=== PATIENT | male | born 1955 | race Caucasian/White ===

== ENCOUNTER 2021-02-09 10:18 | Inpatient (IN) | payer OTHER, SELFPAY ==
[~2021-02-09] VITALS: Ht 157.5 cm; Wt 94.8 kg
[2021-02-09 10:35] VITALS: BP_SYST 148
[2021-02-09] MEDS ORDERED: MORPHINE 4 MG INJ. 4 MG/ML VIAL IM ONE (11:00)
[2021-02-09] MEDS ORDERED: ONDANSETRON 4 MG ODT TAB PO ONE (11:00)
[2021-02-09 11:31] LABS: BASOPHILS # (AUTO) 0.1 K/uL (0.0-0.2); BASOPHILS % (AUTO) 0.4 % (0.0-2.0); EOSINOPHILS # (AUTO) 0.1 K/uL (0.0-0.4); EOSINOPHILS % (AUTO) 0.5 % (0.0-4.0); HEMATOCRIT 51.4 % (36-54); HEMOGLOBIN 17.4 g/dL (14.0-18.0); LYMPHOCYTES % (AUTO) 6.2 % (20.5-51.5); MEAN CORPUSCULAR HEMOGLOBIN 31 pg (27-31); MEAN CORPUSCULAR HGB CONC 34 % (32-36); MEAN CORPUSCULAR VOLUME 91 fL (79.0-98.0); MONOCYTES # (AUTO) 1.2 K/uL (0.0-1.0); MONOCYTES % (AUTO) 7.4 % (1.7-9.3); NEUTROPHILS # (AUTO) 14.1 K/uL (1.8-7.7); NEUTROPHILS % (AUTO) 85.5 % (40.0-70.0); PLATELET COUNT (AUTO) 246 K/uL (130-430); RED BLOOD CELL COUNT(AUTO) 5.65 MIL/uL (4.2-6.2); RED CELL DISTRIBUTION WIDTH 14.8 % (9.0-15.0); WHITE BLOOD COUNT (AUTO) 16.5 K/uL (4.8-10.8)
[2021-02-09 11:43] LABS: CALCIUM 8.7 mg/dL (8.4-11.0); CREATININE 1.05 mg/dL (0.55-1.30); POTASSIUM 3.5 mmol/L (3.5-5.1)
[2021-02-09 11:47] LABS: PROTHROMBIN TIME 10.6 SECS (9.5-12.5)
[2021-02-09 11:49] LABS: ALBUMIN 4.5 g/dL (3.4-4.8); C-REACTIVE PROTEIN QUANT 0.4 mg/dL (0-0.5); TOTAL BILIRUBIN 8.3 mg/dL (0.0-1.0)
[2021-02-09] MEDS ORDERED: MORPHINE 4 MG INJ. 4 MG/ML VIAL IVP ONE (12:30)
[2021-02-09] MEDS ORDERED: NACL 0.9% 1,000 ML IV ONE ×2 (12:30→14:15)
[2021-02-09] MEDS ORDERED: ATOR20TA64 PO (12:32)
[2021-02-09] MEDS ORDERED: BANANA BAG 1 EA, FOLIC ACID 1 MG, THIAMINE HCL 100 MG, MAGNESIUM SULFATE 1 GM, MVI 10 M... IV SCH ×5 (14:15)
[2021-02-09] MEDS: D5NS 1,000 ML IV SCH ×2 (14:24→22:30)
[2021-02-09] MEDS ORDERED: ONDANSETRON HCL 4 MG/2 ML VIAL IVP ONE (15:15)
[2021-02-09] MEDS: LORazepam 2 MG/ML VIAL IVP PRN (15:27)
[2021-02-09] MEDS: THIAMINE HCL 100 MG, MAGNESIUM SULFATE 1 GM in NS 100 ML IV SCH (15:43)
[2021-02-09 15:53] LABS: CLARITY/URINE CLEAR (CLEAR); COLOR,URINE YELLOW (YELLOW); GLUCOSE,URINE NEGATIVE (NEGATIVE); KETONES,URINE 1+ (NEGATIVE); LEUKOCYTE ESTERASE ,URINE NEGATIVE (NEGATIVE); NITRITE, URINE NEGATIVE (NEGATIVE); PROTEIN URINE NEGATIVE (NEGATIVE); UROBILINOGEN,URINE 0.2 (0.2-1.0)
[2021-02-09 16:38] LABS: BLOOD, URINE TRACE (NEGATIVE)
[2021-02-09 17:00] LABS: BILIRUBIN,URINE 3+ (NEGATIVE)
[2021-02-09 17:02] LABS: BACTERIA,URINE FEW /HPF (None Seen); WBC,URINE 0-3 /HPF (0-3)
[2021-02-09] MEDS: FOLIC ACID 1 MG, MVI 10 ML in NACL 0.9% 1,000 ML IV SCH (17:39)
[2021-02-09 20:58] VITALS: BP_SYST 148
[2021-02-09] MEDS: ONDANSETRON HCL 4 MG/2 ML VIAL IM PRN (21:58)
[2021-02-09] MEDS: MORPHINE 4 MG INJ. 4 MG/ML VIAL IVP PRN (22:01)
[2021-02-10 00:50] VITALS: BP_SYST 130
[2021-02-10] MEDS: MORPHINE 4 MG INJ. 4 MG/ML VIAL IVP PRN ×3 (02:57→20:34)
[2021-02-10] MEDS: ONDANSETRON HCL 4 MG/2 ML VIAL IM PRN (02:58)
[2021-02-10] MEDS: D5NS 1,000 ML IV SCH (06:18)
[2021-02-10 08:24] LABS: BASOPHILS % (AUTO) 0.1 % (0.0-2.0); EOSINOPHILS % (AUTO) 0.1 % (0.0-4.0); HEMATOCRIT 44.1 % (36-54); LYMPHOCYTES # (AUTO) 0.8 K/uL (1.0-5.5); LYMPHOCYTES % (AUTO) 5.2 % (20.5-51.5); MEAN CORPUSCULAR HEMOGLOBIN 31 pg (27-31); MEAN CORPUSCULAR HGB CONC 34 % (32-36); MEAN CORPUSCULAR VOLUME 91 fL (79.0-98.0); MONOCYTES # (AUTO) 1.2 K/uL (0.0-1.0); MONOCYTES % (AUTO) 7.9 % (1.7-9.3); NEUTROPHILS # (AUTO) 12.8 K/uL (1.8-7.7); NEUTROPHILS % (AUTO) 86.7 % (40.0-70.0); PLATELET COUNT (AUTO) 179 K/uL (130-430); RED BLOOD CELL COUNT(AUTO) 4.85 MIL/uL (4.2-6.2); RED CELL DISTRIBUTION WIDTH 14.7 % (9.0-15.0); WHITE BLOOD COUNT (AUTO) 14.8 K/uL (4.8-10.8)
[2021-02-10 08:30] VITALS: BP_SYST 129
[2021-02-10] MEDS: LR 1,000 ML IV SCH ×2 (10:00→22:48)
[2021-02-10 11:10] LABS: ALBUMIN 3.4 g/dL (3.4-4.8); CALCIUM 7.9 mg/dL (8.4-11.0); CREATININE 0.99 mg/dL (0.55-1.30); POTASSIUM 3.8 mmol/L (3.5-5.1)
[2021-02-10] MEDS: FOLIC ACID 1 MG, MVI 10 ML in NACL 0.9% 1,000 ML IV SCH (15:46)
[2021-02-10] MEDS: THIAMINE HCL 100 MG, MAGNESIUM SULFATE 1 GM in NS 100 ML IV SCH (15:47)
[2021-02-10 15:54] VITALS: BP_SYST 120
[2021-02-10] MEDS: LORazepam 2 MG/ML VIAL IVP PRN (16:12)
[2021-02-10] MEDS: MORPHINE 2 MG/ML INJ. SYRINGE IVP PRN (16:14)
[2021-02-10 20:27] VITALS: BP_SYST 122
[2021-02-11] VITALS: BP_SYST 118
[2021-02-11] MEDS: LR 1,000 ML IV SCH ×4 (04:54→21:56)
[2021-02-11] MEDS: MORPHINE 4 MG INJ. 4 MG/ML VIAL IVP PRN ×5 (04:55→21:59)
[2021-02-11 07:13] LABS: BASOPHILS % (AUTO) 0.2 % (0.0-2.0); EOSINOPHILS % (AUTO) 0.2 % (0.0-4.0); HEMATOCRIT 42.2 % (36-54); HEMOGLOBIN 14.4 g/dL (14.0-18.0); LYMPHOCYTES # (AUTO) 1.2 K/uL (1.0-5.5); LYMPHOCYTES % (AUTO) 6.7 % (20.5-51.5); MEAN CORPUSCULAR HEMOGLOBIN 31 pg (27-31); MEAN CORPUSCULAR HGB CONC 34 % (32-36); MEAN CORPUSCULAR VOLUME 91 fL (79.0-98.0); MONOCYTES # (AUTO) 1.8 K/uL (0.0-1.0); MONOCYTES % (AUTO) 10.2 % (1.7-9.3); NEUTROPHILS # (AUTO) 14.3 K/uL (1.8-7.7); NEUTROPHILS % (AUTO) 82.7 % (40.0-70.0); PLATELET COUNT (AUTO) 143 K/uL (130-430); RED BLOOD CELL COUNT(AUTO) 4.66 MIL/uL (4.2-6.2); RED CELL DISTRIBUTION WIDTH 14.6 % (9.0-15.0); WHITE BLOOD COUNT (AUTO) 17.3 K/uL (4.8-10.8)
[2021-02-11 08:34] LABS: CALCIUM 8.1 mg/dL (8.4-11.0); CREATININE 0.83 mg/dL (0.55-1.30); POTASSIUM 3.7 mmol/L (3.5-5.1)
[2021-02-11 09:18] VITALS: BP_SYST 116
[2021-02-11 11:31] VITALS: BP_SYST 104
[2021-02-11] MEDS: THIAMINE HCL 100 MG, MAGNESIUM SULFATE 1 GM in NS 100 ML IV SCH (15:19)
[2021-02-11] MEDS: FOLIC ACID 1 MG, MVI 10 ML in NACL 0.9% 1,000 ML IV SCH (15:20)
[2021-02-11 15:35] VITALS: BP_SYST 140
[2021-02-11 19:00] VITALS: BP_SYST 108
[2021-02-11 20:00] VITALS: BP_SYST 108
[2021-02-12] VITALS: BP_SYST 104
[2021-02-12] MEDS: MORPHINE 4 MG INJ. 4 MG/ML VIAL IVP PRN ×6 (02:14→23:18)
[2021-02-12 06:27] LABS: BASOPHILS % (AUTO) 0.2 % (0.0-2.0); EOSINOPHILS # (AUTO) 0.1 K/uL (0.0-0.4); EOSINOPHILS % (AUTO) 0.3 % (0.0-4.0); HEMATOCRIT 39.5 % (36-54); HEMOGLOBIN 13.5 g/dL (14.0-18.0); MEAN CORPUSCULAR HEMOGLOBIN 31 pg (27-31); MEAN CORPUSCULAR HGB CONC 34 % (32-36); MEAN CORPUSCULAR VOLUME 90 fL (79.0-98.0); MONOCYTES # (AUTO) 1.7 K/uL (0.0-1.0); MONOCYTES % (AUTO) 11.3 % (1.7-9.3); NEUTROPHILS # (AUTO) 12.2 K/uL (1.8-7.7); PLATELET COUNT (AUTO) 145 K/uL (130-430); RED BLOOD CELL COUNT(AUTO) 4.38 MIL/uL (4.2-6.2); RED CELL DISTRIBUTION WIDTH 14.8 % (9.0-15.0)
[2021-02-12 07:11] LABS: ALBUMIN 2.8 g/dL (3.4-4.8); CALCIUM 7.8 mg/dL (8.4-11.0); CREATININE 0.81 mg/dL (0.55-1.30); PHOSPHORUS 2.5 mg/dL (2.7-4.5); POTASSIUM 3.5 mmol/L (3.5-5.1); TOTAL BILIRUBIN 3.3 mg/dL (0.0-1.0)
[2021-02-12 08:25] VITALS: BP_SYST 124
[2021-02-12] MEDS: LR 1,000 ML IV SCH ×3 (10:10→23:17)
[2021-02-12 11:46] LABS: NEUTROPHILS % (AUTO) 81.2 % (40.0-70.0)
[2021-02-12 13:36] VITALS: BP_SYST 113
[2021-02-12] MEDS: FOLIC ACID 1 MG, MVI 10 ML in NACL 0.9% 1,000 ML IV SCH (16:45)
[2021-02-12] MEDS: THIAMINE HCL 100 MG, MAGNESIUM SULFATE 1 GM in NS 100 ML IV SCH (16:46)
[2021-02-12] MEDS: MORPHINE 2 MG/ML INJ. SYRINGE IVP PRN ×2 (16:58→21:01)
[2021-02-12 18:14] VITALS: BP_SYST 145
[2021-02-12 20:00] VITALS: BP_SYST 124
[2021-02-13] VITALS: BP_SYST 124
[2021-02-13] MEDS: MORPHINE 4 MG INJ. 4 MG/ML VIAL IVP PRN ×3 (03:08→12:20)
[2021-02-13] MEDS: LR 1,000 ML IV SCH ×3 (05:27→18:00)
[2021-02-13 08:29] VITALS: BP_SYST 148
[2021-02-13 09:43] LABS: BASOPHILS % (AUTO) 0.2 % (0.0-2.0); EOSINOPHILS # (AUTO) 0.1 K/uL (0.0-0.4); EOSINOPHILS % (AUTO) 0.6 % (0.0-4.0); HEMOGLOBIN 13.9 g/dL (14.0-18.0); LYMPHOCYTES % (AUTO) 7.4 % (20.5-51.5); MEAN CORPUSCULAR HEMOGLOBIN 31 pg (27-31); MEAN CORPUSCULAR HGB CONC 34 % (32-36); MEAN CORPUSCULAR VOLUME 90 fL (79.0-98.0); MONOCYTES # (AUTO) 1.6 K/uL (0.0-1.0); MONOCYTES % (AUTO) 12.5 % (1.7-9.3); NEUTROPHILS # (AUTO) 10.4 K/uL (1.8-7.7); NEUTROPHILS % (AUTO) 79.3 % (40.0-70.0); PLATELET COUNT (AUTO) 170 K/uL (130-430); RED BLOOD CELL COUNT(AUTO) 4.54 MIL/uL (4.2-6.2); RED CELL DISTRIBUTION WIDTH 14.5 % (9.0-15.0); WHITE BLOOD COUNT (AUTO) 13.1 K/uL (4.8-10.8)
[2021-02-13 10:02] LABS: CALCIUM 8.2 mg/dL (8.4-11.0); CREATININE 0.69 mg/dL (0.55-1.30); POTASSIUM 3.3 mmol/L (3.5-5.1)
[2021-02-13 10:07] LABS: ALBUMIN 2.9 g/dL (3.4-4.8); TOTAL BILIRUBIN 2.3 mg/dL (0.0-1.0)
[2021-02-13 12:00] VITALS: BP_SYST 136
[2021-02-13] MEDS: THIAMINE HCL 100 MG, MAGNESIUM SULFATE 1 GM in NS 100 ML IV SCH ×3 (14:26→16:45)
[2021-02-13] MEDS ORDERED: HYDROcodone/ACETAMIN 5-325 MG TAB (NORCO/ VICODIN) PO PRN (17:00)
[2021-02-13] MEDS ORDERED: HYDROmorphone 1 MG/ML INJ. CARTRIDGE IVP PRN (17:00)
[2021-02-13] MEDS ORDERED: METOCLOPRAMIDE HCL 10 MG/2 ML VIAL IVP PRN (19:30)
[2021-02-13] MEDS ORDERED: fentaNYL CITRATE/PF 100 MCG/2 ML AMP IVP PRN ×2 (19:30)
[2021-02-13] MEDS ORDERED: ONDANSETRON HCL 4 MG/2 ML VIAL IVP PRN (19:30)
[2021-02-13] MEDS ORDERED: ePHEDrine sulfate 50 MG/ML VIAL ONE (20:00)
[2021-02-13] MEDS ORDERED: MIDAZOLAM HCL 5 MG/ML VIAL (VERSED) IV ONE (20:00)
[2021-02-13] MEDS ORDERED: ROCURONIUM BROMIDE 10 MG/ML (ZEMURON) ONE (20:00)
[2021-02-13] MEDS ORDERED: CEFAZOLIN 2 GM IVPB PREMIX 50 ML IV ONE (20:00)
[2021-02-13] MEDS ORDERED: KETOROLAC TROMETHAMINE 30 MG VIAL ONE (20:00)
[2021-02-13] MEDS ORDERED: ONDANSETRON HCL 4 MG/2 ML VIAL ONE (20:00)
[2021-02-13] MEDS ORDERED: BUPIVACAINE /PF 0.25% 30 ML VIAL INJ ONE (20:00)
[2021-02-13] MEDS ORDERED: METOCLOPRAMIDE HCL 10 MG/2 ML VIAL ONE (20:00)
[2021-02-13] MEDS ORDERED: LR 1,000 ML IV.SOLN IV ONE (20:00)
[2021-02-13] MEDS ORDERED: PHENYLEPHRINE HCL 10 MG/ML VIAL (NEOSYNEPHRINE) ONE (20:00)
[2021-02-13] MEDS ORDERED: fentaNYL CITRATE/PF 100 MCG/2 ML AMP ONE (20:00)
[2021-02-13] MEDS ORDERED: PROPOFOL 200MG/ 20ML VIAL (DIPRIVAN) IV ONE (20:00)
[2021-02-13] MEDS ORDERED: DEXAMETHASONE SOD PHOSPHATE 4 MG/ML VIAL ONE (20:00)
[2021-02-13] MEDS ORDERED: SEVOFLURANE 15 MIN GAS INH ONE (20:00)
[2021-02-13] MEDS ORDERED: LIDOCAINE/EPI 1% 1:100000 20 ML VIAL INJ ONE (20:00)
[2021-02-13] MEDS ORDERED: NS IRRIG SOLN 1000 ML IR ONE (20:00)
[2021-02-13] MEDS ORDERED: SUCCINYLCHOLINE CHLORIDE 20 MG/ML(QUELICIN) ONE (20:00)
[2021-02-13] MEDS ORDERED: NS 1000 ML IV.SOLN IV ONE (20:00)
[2021-02-13] MEDS ORDERED: WATER FOR IRRIGATION,STERILE 1,000 ML IRRIG.SOLN IR ONE (20:00)
[2021-02-13] MEDS ORDERED: IPRATROPIUM/ALBUTEROL SULFATE 3 ML AMPUL.NEB (DUONEB) ONE ×2 (20:14→20:35)
[2021-02-13] MEDS ORDERED: IPRATROPIUM/ALBUTEROL SULFATE 3 ML AMPUL.NEB (DUONEB) INH ONE (20:30)
[2021-02-13 20:47] VITALS: BP_SYST 130
[2021-02-13] MEDS: FOLIC ACID 1 MG, MVI 10 ML in NACL 0.9% 1,000 ML IV SCH (21:43)
[2021-02-13 22:10] VITALS: BP_SYST 136
[2021-02-14] VITALS: BP_SYST 134
[2021-02-14 01:26] VITALS: BP_SYST 136
[2021-02-14] MEDS: LR 1,000 ML IV SCH ×4 (02:52→20:36)
[2021-02-14 07:45] LABS: PROTHROMBIN TIME 10.8 SECS (9.5-12.5)
[2021-02-14] MEDS ORDERED: SIMETHICONE 40 MG/0.6 ML ML ONE (07:45)
[2021-02-14] MEDS ORDERED: IOHEXOL 350 mgI/mL, 150 ML INFUS..BTL IV ONE (08:01)
[2021-02-14] MEDS ORDERED: INDOMETHACIN 50 MG SUPP.RECT RC ONE (08:30)
[2021-02-14] MEDS ORDERED: METOCLOPRAMIDE HCL 10 MG/2 ML VIAL IVP PRN (09:15)
[2021-02-14] MEDS ORDERED: MORPHINE 4 MG INJ. 4 MG/ML VIAL IVP PRN (09:15)
[2021-02-14] MEDS ORDERED: KETOROLAC TROMETHAMINE 30 MG VIAL IVP PRN (09:15)
[2021-02-14] MEDS ORDERED: NS 1000 ML IV.SOLN IV ONE (09:23)
[2021-02-14] MEDS ORDERED: PROPOFOL 200MG/ 20ML VIAL (DIPRIVAN) IV ONE (09:23)
[2021-02-14] MEDS ORDERED: ROCURONIUM BROMIDE 10 MG/ML (ZEMURON) ONE (09:23)
[2021-02-14] MEDS ORDERED: SUCCINYLCHOLINE CHLORIDE 20 MG/ML(QUELICIN) ONE (09:23)
[2021-02-14] MEDS ORDERED: IPRATROPIUM/ALBUTEROL SULFATE 3 ML AMPUL.NEB (DUONEB) INH ONE (09:30)
[2021-02-14 12:00] VITALS: BP_SYST 133
[2021-02-14 16:00] VITALS: BP_SYST 112
[2021-02-14] MEDS: FOLIC ACID 1 MG, MVI 10 ML in NACL 0.9% 1,000 ML IV SCH (17:45)
[2021-02-14] MEDS: THIAMINE HCL 100 MG, MAGNESIUM SULFATE 1 GM in NS 100 ML IV SCH (17:45)
[2021-02-14 19:00] VITALS: BP_SYST 132
[2021-02-14 20:00] VITALS: BP_SYST 132
[2021-02-15] VITALS: BP_SYST 136
[2021-02-15] MEDS: LR 1,000 ML IV SCH (03:17)
[2021-02-15 07:00] VITALS: BP_SYST 144
[2021-02-15] MEDS ORDERED: HYDR-3917 PO ×2 (07:01→07:02)
[2021-02-15] MEDS ORDERED: DOCU-144 PO (07:09)
[2021-02-15 11:21] VITALS: BP_SYST 139
[2021-02-15 12:11] VITALS: BP_SYST 142
== END 2021-02-15 12:30 | disposition home or self-care (01) | DRG 417 ==
LOC: SED 10:18 → SMU 12:24 → STU 02-13 20:16
PROVIDERS: ADMIT Internal Medicine Hospice and Palliative Medicine; ATTEND Internal Medicine Hospice and Palliative Medicine
PROC: 0FN44ZZ Release Gallbladder, Percutaneous Endoscopic Approach (ICD-10-PCS; 2021-02-13)
PROC: BF121ZZ Fluoroscopy of Gallbladder using Low Osmolar Contrast (ICD-10-PCS; 2021-02-13)
PROC: 0FT44ZZ Resection of Gallbladder, Percutaneous Endoscopic Approach (ICD-10-PCS; principal; 2021-02-13 16:59)
PROC: 0FC98ZZ Extirpation of Matter from Common Bile Duct, Via Natural or Artificial Opening Endoscopic (ICD-10-PCS; 2021-02-14)
PROC: 0F798ZZ Dilation of Common Bile Duct, Via Natural or Artificial Opening Endoscopic (ICD-10-PCS; 2021-02-14)
DX: K80.66 Calculus of gallbladder and bile duct with acute and chronic cholecystitis without obstruction (principal); K85.10 Biliary acute pancreatitis without necrosis or infection; E87.2 Acidosis; E78.5 Hyperlipidemia, unspecified; R74.01 Elevation of levels of liver transaminase levels; I51.7 Cardiomegaly; K57.90 Diverticulosis of intestine, part unspecified, without perforation or abscess without bleeding; F17.210 Nicotine dependence, cigarettes, uncomplicated; K29.80 Duodenitis without bleeding; K29.70 Gastritis, unspecified, without bleeding; Z20.822 Contact with and (suspected) exposure to COVID-19; Z80.3 Family history of malignant neoplasm of breast
CPT/HCPCS: 36415; 71045; 76000; 76376; 76700-TC; 80053; 81000; 82150; 83605; 83615; 83690; 83735; 83880; 84100; 84484; 85025; 85610-TC; 85730-TC; 86140; 86886; 86900; 86901; 88304; 93005; 94640; 96361; 96372; 96374; 96375; 99285; C1727; C1758; G0378; J0330; J0690; J1100; J1885; J2060; J2250; J2270; J2370; J2405; J2704; J2765; J3010; J3411; J3475; J3490; J7030; J7120; Q0162; Q9967